=== PATIENT | male | born 1965 | race Caucasian/White ===

== ENCOUNTER 2016-11-29 15:29 | Emergency (ER) | payer SELFPAY ==
[~2016-11-29] VITALS: Ht 172.7 cm; Wt 75.0 kg
[2016-11-29 15:35] VITALS: BP 140/83; PULSE 88; RESP 17; O2SAT 97
--- NOTE | 2016-11-29 16:08 | ED.REPORT ---
HPI-Rash / Abscess Date of Service November 29, 2016 ED Provider: History of Present Illness: 51-year-old male here for abscess to his right gluteus. Present for a few days, he did a warm Epsom salts bath, and seemed to get more painful. history of previous abscesses on his R wrist 06/2016. No IV drug use. Is up-to-date on tetanus. Unknown fever.. No nausea vomiting diarrhea. Took hydrocodone [employer]. Nursing Notes Stated Complaint: ABSCESS Chief Complaint: Skin Rash/Abscess Nursing Notes Reviewed: Yes Allergies: Coded Allergies: No Known Allergies (Unverified , 11/29/16) Scheduled Cephalexin (Keflex) 500 Mg Capsule 500 MG PO QID Sulfamethoxazole/Trimeth 800-160 mg (Bactrim DS 800-160 mg) 1 Each Tablet 1 TABLET PO BID General Time Seen by MD: 16:08 Chief Complaint Abscess Hx Obtained From: Patient Arrived By: Walk-in Onset Occurred: 4 days ago Symptom Duration: Constant Location: : Buttock Severity: Maximum: Moderate Associated with: Denies Fever, Denies Vomiting Pertinent Negative: Pt denies other symptoms Similar Sx Previous: No Past Medical History Past Medical History Notes: denies Review of Systems Review of Systems Note: abscess R glut Basic Review of Systems Neurologic: NL mental status, No weakness, No numbness Psychiatric: Normal thought content Constitutional: Denies: Chills, Fatigue, Fever Cardiovascular: Denies: Chest pain GI: Denies: Abdominal pain, Diarrhea, Melena, Nausea, Vomiting Complete sys rev & neg: except as marked. Physical Exam Physical Exam Notes: 4x4cm erythematous firm area of cellulitis, no head. tender. L mid buttocks Initial Vital Signs Vital Signs (First) Date Time Temp Pulse Resp B/P Pulse Ox O2 Delivery O2 Flow Rate FiO2 11/29/16 15:35 36.6 88 17 140/83 97 Room Air Initial VS: Reviewed, Vital signs normal Head / Eyes: Atraumatic, Normocephalic, PERRL ENT: Mucous membranes moist, Conjunctiva normal, No scleral icterus Respiratory: Breath sounds normal, Clear to auscultation, No respiratory distress Cardiovascular: Regular rate & rhythm, Heart sounds normal, Intact distal pulses Abdomen / GI: Soft, Non-tender, No guarding, No rebound, No distention Neurologic: Alert, Oriented, Nonfocal Psychiatric: Mood/affect normal, Behavior normal, Normal thought content General/Constitutional: Awake, Alert, Well appearing Skin: Atraumatic, Dry, Intact Rash / Lesion Location: Positive: Buttocks, Localized Abscess #1 Location/Condition: Positive: Buttock L... (Indurated), Indurated, Medium, Tender, Negative: Purulent discharge Respiratory / Chest: Breath sounds NL, Breath sounds = bilat, No respiratory distress, No rales, No rhonchi, No wheezing Cardiovascular: Heart rate NL, Regular rhythm, Heart sounds NL, Peripheral circulation NL Procedures Incision & Drainage Abscess Procedure Performed by: Allied health pract Consent / Setup / Site Prep: Informed consent provided, Consent from patient Skin Preparation Agent: Hibiclens - Chlorhexidine Local Anesthesia: Lidocaine 1% Incised Abscess with Scalpel: #15 Pus Drained: No purulence Irrigation: No Post-Procedure / Complications: Dressing applied Re-Eval/Medical Decision Med Decision/Clinical Course culture obtained, no purulence. Discharge & Departure Shift Change Sign-Out Laboratory Evaluation: Lab evaluation discussed Procedures: Results discussed Response to Therapy: Improved Impression: Primary Impression: Cellulitis Site of cellulitis: buttock Qualified Code: L03.317 - Cellulitis of buttock Disposition: Home Discharge Condition All VS Reviewed: Yes Condition: Stable Patient Instructions: Cellulitis (ED) Additional Instructions: Continue warm packs and Epsom salts baths once to twice a day. Tylenol or ibuprofen as needed for pain. Take antibiotics as directed. Monitor line drawn around erythema and follow up immediately if redness extends past the midline. Follow up immediately if you get fevers, worsening swelling, vomiting or worsening condition at all. Recheck at walk in clinic or with PCP provided in 2-3 days. EDSupervising Provider for APC: Arielle Pierre MD, Linnea K ARNP November 29, 2016 16:08
[2016-11-29] MEDS ORDERED: cefTRIAXone Inj 1,000 MG, Lidocaine PF 1% Inj 2.1 ML in Syringe 0 EACH IM ONE (18:00)
[2016-11-29] MEDS ORDERED: Trimethoprim-Sulfa 160 mg-800 mg Tablet PO ONE (18:00)
[2016-11-29] MEDS ORDERED: CEPH-512 PO (18:02)
[2016-11-29] MEDS ORDERED: SULF1TAB35 PO (18:03)
[2016-11-29 18:17] VITALS: BP 140/83; PULSE 88; RESP 16; O2SAT 97
== END 2016-11-29 18:21 | disposition home or self-care (01) ==
LOC: SED 15:29
DX: L03.317 Cellulitis of buttock (principal)
CPT/HCPCS: 10060; 87070; 87075; 87186; 87205; 96372; 99284; J0696

== ENCOUNTER 2017-01-16 15:44 | Emergency (ER) | payer SELFPAY ==
[~2017-01-16] VITALS: Ht 172.7 cm; Wt 77.3 kg
[~2017-01-16 15:44] MED LIST: CEPH-512 PO; SULF1TAB35 PO
[2017-01-16 15:46] VITALS: BP 134/90; PULSE 87; RESP 20; O2SAT 98
--- NOTE | 2017-01-16 16:47 | ED.REPORT ---
HPI-Rash / Abscess Date of Service Jan 16, 2017 ED Provider: Mandeep Aiken MD The patient is a 51 year old male who presents to the ED c/o of an abscess to his right eyebrow onset 2 days ago. The area has been draining pus. Pt denies fever, hx of DM, or any other medical problems. Nursing Notes Stated Complaint: ABSCESS Chief Complaint: Skin Rash/Abscess Nursing Notes Reviewed: Yes Allergies: Coded Allergies: No Known Allergies (Unverified , 11/29/16) Scheduled Cephalexin (Keflex) 500 Mg Capsule 500 MG PO QID Clindamycin (Clindamycin) 300 Mg Capsule 300 MG PO QID Sulfamethoxazole/Trimeth 800-160 mg (Bactrim DS 800-160 mg) 1 Each Tablet 1 TABLET PO BID General Time Seen by MD: 16:41 Chief Complaint Abscess Hx Obtained From: Patient Arrived By: Walk-in Onset Occurred: 2 days ago Symptom Duration: Since onset Location: : Head/face Recent Healthcare: No recent doctor visit, No recent hospitalization Similar Sx Previous: No Past Medical History Past Medical History Notes: denies Past Medical History denies Past Surgical History denies Social History Other Social History: Local resident Ambulatory Status Independent Review of Systems Constitutional: Denies: Chills, Fever, Weakness - generalized Skin: Reports Rash (abscess), Reports Swelling, Denies Diaphoresis Complete sys rev & neg: except as marked. Physical Exam Physical Exam Notes: no swelling of neck, lips, face or scalp airway to patent Initial Vital Signs Vital Signs (First) Date Time Temp Pulse Resp B/P Pulse Ox O2 Delivery O2 Flow Rate FiO2 01/16/17 15:46 36.7 87 20 134/90 98 Room Air Initial VS: Reviewed General/Constitutional: Awake, Alert, No acute distress, Cooperative, Not toxic appearing Abscess Notes: 2cm by 2 cm induration and erythema, purulent drainage from region Abscess #1 Location/Condition: Positive: Location (right temporal region) Head / Eyes: Normocephalic no proptosis no swelling of periorbital region ENT: Mucous membranes moist Re-Eval/Medical Decision Med Decision/Clinical Course The patient is a 51 year old male who presents to the ED c/o of an abscess to his right eyebrow onset 2 days ago. The area has been draining pus. Pt denies fever, hx of DM, or any other medical problems. Here in the emergency department the patient is afebrile, hemodynamically stable and in no apparent distress. Termination as above reveals a small superficial abscess that is actively draining. There is mild surrounding erythema consistent with cellulitis. There is no evidence of periorbital infection. He has no proptosis. The affected region appears superficial and I do not feel that any imaging studies are indicated at this time. 1718: Plan for oral Clindamycin. Patient advised to apply warm compresses and return right away for fevers, increased swelling or failure of symptoms to improve. Prior to discharge follow-up and return precautions were reviewed in detail with the patient who verbalized understanding and agreement with the plan. The patient was discharged in stable condition. Re-Evaluation/Progress : Time of Eval: 17:18 Re-Evaluation/Progress Note: Pt checked. Plan for Clindamycin and discharge. Pt understands and agrees with plan. F/U and RTER warnings given. All questions addressed. Counseled Regarding: Diagnosis, Lab results, Need for follow-up, When/why to return to ED Discharge & Departure Impression: Primary Impression: Abscess of face Additional Impression: Cellulitis of face Disposition: Home Discharge Condition All VS Reviewed: Yes Condition: Stable Patient Instructions: Abscess (ED) Additional Instructions: You have a small abscess. I am sending you home with a course of antibiotics, Clindamycin. Take this as directed. Put warm compresses on the abscess. This will keep the wound draining. Return to the Emergency Department for any new or worsening symptoms including fever, swelling, redness, warmth, or any signs of infection. Referrals: NOPCP (PCP) [facility] Olga Attestation Portion of this note were transcribed by Kiara Costa. I, Dr. Aiken, personally performed the history, physical exam, and medical decision-making: I reviewed and confirmed the accuracy for the information in the transcribed note. Signed by: olga Jordan, 01/16/17 1800 copies to: [facility] Mandeep Aiken MD Jan 16, 2017 16:47 Kiara Costa Jan 16, 2017 17:21
[2017-01-16] MEDS ORDERED: CLIN-78 PO (17:21)
== END 2017-01-16 17:30 | disposition home or self-care (01) ==
LOC: SED 15:44
DX: L02.01 Cutaneous abscess of face (principal); L03.211 Cellulitis of face